=== PATIENT | male | born 2005 ===

== ENCOUNTER 2025-09-05 22:55 | Emergency (ER) | payer OTHER ==
[2025-09-05] MEDS: HYDROCODONE/ACETAMINOPHEN 5-325 MG TABLET PO ONE (23:11)
[2025-09-06 00:47] VITALS: BP 133/65; PULSE 68; RESP 18; TEMP 97.3; O2SAT 98
== END 2025-09-06 01:59 | disposition home or self-care (01) ==
LOC: EMS 22:55
DX: S43.004A Unspecified dislocation of right shoulder joint, initial encounter (principal); F12.90 Cannabis use, unspecified, uncomplicated; J45.909 Unspecified asthma, uncomplicated; Q60.0 Renal agenesis, unilateral; Z88.5 Allergy status to narcotic agent; W06.XXXA Fall from bed, initial encounter; Y93.89 Activity, other specified; Y92.89 Other specified places as the place of occurrence of the external cause; Y99.8 Other external cause status
CPT/HCPCS: 23650; 99284; 73030-TC; 73110-TC; Z7502; Z7610